=== PATIENT | male | born 1945 | race Caucasian/White ===

== ENCOUNTER 2020-03-17 12:42 | Outpatient (CLI) | payer MEDICARE, SELFPAY ==
--- NOTE | ~2020-03-17 | US_ITS ---
EXAMINATION: US joint non vasc ltd DATE: 03/17/2020 13:40 INDICATION: Palpable lump at the left forearm. TECHNIQUE: Multiple grayscale and Doppler ultrasound images of the region of concern at the left fore arm were obtained. COMPARISON: None FINDINGS: Nonspecific 1.3 x 0.6 x 1.3 cm nodule slightly hypoechoic to the surrounding subcutaneous fat statist ically most likely to represent a lipoma although differential would include other solid neoplasm eit her benign or malignant. Depending on the level of clinical concern could consider either clinical fo llow-up or further evaluation with CT, MRI or ultrasound-guided biopsy. Reviewed, dictated and finalized at location A.
== END 2020-03-17 12:43 | disposition home or self-care (01) ==
PROVIDERS: PCP Internal Medicine; Visit Provider Internal Medicine
DX: R22.32 Localized swelling, mass and lump, left upper limb (principal)
CPT/HCPCS: 76882

== ENCOUNTER → 2020-06-14 15:28 | Outpatient (REF) | payer MEDICARE, SELFPAY | LOC: ANHLAB 15:28 | PROVIDERS: PCP Internal Medicine; Visit Provider Nurse Practitioner | DX: R22.9 Localized swelling, mass and lump, unspecified (principal) | CPT/HCPCS: 88304 ==

== ENCOUNTER 2022-10-26 11:07 | Outpatient (CLI) | payer MEDICARE, SELFPAY ==
--- NOTE | ~2022-10-26 | XR_ITS ---
Lumbosacral Spine: AP and lateral views, with neutral, flexion, extension positioning Clinical History: Pain Findings: The normal lordotic curve is maintained. No fracture evident. Minimal grade 1 retrolisthesi s of L2 over L3 noted. No instability evident on flexion or extension positioning. There is facet anais nt degenerative change from L3 through S1. The intervertebral disc spaces are preserved. The sacroil iac joints are normally outlined. Impression: Minimal grade 1 retrolisthesis of L2 over L3. No instability evident on flexion or extension. Facet joint arthropathy, as detailed above. Reviewed, dictated and finalized at location M. ESSMAKER Impression: Minimal grade 1 retrolisthesis of L2 over L3. No instability evident on flexion or extension. Facet joint arthropathy, as detailed above.
--- NOTE | ~2022-10-26 | XR_ITS ---
AP view of the pelvis and AP and lateral views of the right hip Clinical history: Pain Findings: No acute fracture or dislocation is seen. Osseous alignment is anatomic. Bilateral hip and SI joint spaces are preserved. Soft tissues are unremarkable. Impression: No significant abnormality is seen. Reviewed, dictated and finalized at [facility]. CAPPER Impression: No significant abnormality is seen.
== END 2022-10-26 11:08 | disposition home or self-care (01) ==
PROVIDERS: PCP Internal Medicine; Visit Provider Internal Medicine
DX: M25.551 Pain in right hip (principal); M47.816 Spondylosis without myelopathy or radiculopathy, lumbar region
CPT/HCPCS: 72110; 73502